=== PATIENT | female | born 1960 | race African-American/Black ===

== ENCOUNTER 2024-01-23 12:21 | Emergency (ER) | payer OTHER ==
[~2024-01-23] VITALS: Ht 167.6 cm; Wt 99.8 kg
[2024-01-23 12:30] VITALS: O2SAT 98
[2024-01-23] MEDS ORDERED: NAPR-681 MT (13:13)
[2024-01-23 13:27] VITALS: BP 145/87; PULSE 84; RESP 17; TEMP 99
== END 2024-01-23 13:54 | disposition home or self-care (01) ==
LOC: ER 12:26
DX: M25.571 Pain in right ankle and joints of right foot (principal)
CPT/HCPCS: 73610; 99283